=== PATIENT | male | born 1995 | race Caucasian/White ===

== ENCOUNTER 2016-07-18 22:15 | Emergency (ER) | payer SELFPAY ==
[~2016-07-18] VITALS: Ht 182.9 cm; Wt 85.0 kg
[2016-07-18 22:17] VITALS: BP 146/91; PULSE 83; RESP 16; TEMP 97.9; O2SAT 100
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
[2016-07-19] MEDS ORDERED: DICL75TA PO (00:09)
--- NOTE | 2016-07-19 00:10 | RADRPT ---
EXAM DATE/TIME: 07/18/2016 23:46 [facility] COMPARISON: No previous studies available for comparison. INDICATIONS : Left wrist pain post fall. MEDICAL HISTORY : None. SURGICAL HISTORY : None. ENCOUNTER: Initial ACUITY: 1 day PAIN SCORE: 4/10 LOCATION: Left wrist. FINDINGS: Three view examination of the left wrist demonstrates no soft tissue swelling, dislocation, or fractu re. The carpal bones are in normal alignment. The joint spaces are maintained. Bony mineralization is normal. CONCLUSION: No fracture. Bashir Luque MD on July 19, 2016 at 0:09 Board Certified Radiologist. This report was verified electronically.
--- NOTE | 2016-07-19 00:10 | RADRPT ---
EXAM DATE/TIME: 07/18/2016 23:43 [facility] COMPARISON: No previous studies available for comparison. INDICATIONS : Left hand pain post fall. MEDICAL HISTORY : None. SURGICAL HISTORY : None. ENCOUNTER: Initial ACUITY: 1 day PAIN SCORE: 3/10 LOCATION: Left hand. FINDINGS: Two view examination of the left hand demonstrates no soft tissue swelling, dislocation, or fracture. The joint spaces are maintained. Bony mineralization is normal. CONCLUSION: No fracture. Bashir Luque MD on July 19, 2016 at 0:08 Board Certified Radiologist. This report was verified electronically.
[2016-07-19] MEDS ORDERED: NAPROXEN 500 MG TAB PO ONE (00:15)
== END 2016-07-19 00:28 | disposition home or self-care (01) ==
LOC: NEPB 22:15
DX: S63.502A Unspecified sprain of left wrist, initial encounter (principal); W18.09XA Striking against other object with subsequent fall, initial encounter; Y93.9 Activity, unspecified; Y92.813 Airplane as the place of occurrence of the external cause; Y99.9 Unspecified external cause status
CPT/HCPCS: 73110; 73120; 99283; L3908